=== PATIENT | male | born 1945 | race Caucasian/White ===

== ENCOUNTER 2019-03-02 12:49 | Inpatient (IN) | payer MEDICARE, OTHER ==
[~2019-03-02] VITALS: Ht 185.4 cm; Wt 87.2 kg
[2019-03-02] MEDS: SODIUM CHLORIDE 0.9% 1,000 ML IV SCH ×2 (06:30→18:47)
[~2019-03-02 12:49] MED LIST: ALL100T PO; ASP81EC PO; CITA-77 PO; CYAN500T3 PO; DEX4T PO; GLIP5TAB12 PO; METF500T PO; PANT40TA2 PO
[2019-03-02 14:16] LABS: Basophils # (auto) 0 uL; Basophils % (auto) 0.2 % (0.0-2.0); Eosinophils # (auto) 0 uL; Hematocrit 28.7 % (41.0-53.0); Hemoglobin 9.5 g/dL (13.5-17.5); Lymphocytes # (auto) 2.6 uL; Lymphocytes % (auto) 27.9 % (10.0-50.0); Mean Corpuscular Hgb Conc. 33.1 g/dL (32.0-36.0); Mean Corpuscular Volume 99.8 fL (80.0-100.0); Monocytes # (auto) 0.8 uL; Monocytes % (auto) 8.3 % (0.0-12.0); Neutrophils # (auto) 5.8 uL; Neutrophils % (auto) 63.6 % (37.0-80.0); Platelet Count (auto) 286 10^3/uL (140-450); Red Blood Cells 2.87 10^6/uL (4.5-5.90); White Blood Cell 9.2 10^3/uL (4.4-10.8)
[2019-03-02 14:25] LABS: Alanine Aminotransferase 33 U/L (16-61); Albumin 3.4 g/dL (3.4-5.0); Anion Gap 9 (5-15); Aspartate Aminotransferase 31 U/L (15-37); BUN/Creatinine Ratio 20.3; Blood Urea Nitrogen 24 mg/dL (7-18); Calcium 12.8 mg/dL (8.5-10.1); Carbon Dioxide 27 mmol/L (21-32); Chloride 98 mmol/L (98-107); GFR African American 77 mL/min; GFR Non-African American 64 mL/min; Glucose 132 mg/dL (74-106); Potassium 3.8 mmol/L (3.5-5.1); Sodium 134 mmol/L (136-145)
[2019-03-02 14:29] LABS: Alkaline Phosphatase 177 U/L (45-117); Bilirubin, Total 0.4 mg/dL (0.2-1.0); Total Protein 8.3 g/dL (6.4-8.2)
[2019-03-02] MEDS ORDERED: MORPHINE SULF INJ 2 MG/ML SYRINGE 1ML IV PRN (16:00)
[2019-03-02] MEDS ORDERED: PAMIDRONATE DISODIUM IV ONE (16:00)
[2019-03-02] MEDS ORDERED: MORPHINE SULFATE 4 MG/ML SYR/VIAL IV PRN (16:00)
[2019-03-02] MEDS ORDERED: PROMETHAZINE HCL 25 MG/ML 1ML IV PRN (16:00)
[2019-03-02] MEDS ORDERED: ACETAMINOPHEN 500 MG TAB PO PRN (16:00)
[2019-03-02] MEDS ORDERED: NITROGLYCERIN 0.4 MG SL TAB SL PRN (16:00)
[2019-03-02] MEDS ORDERED: SODIUM CHL 0.9% IV ONE (16:00)
[2019-03-02] MEDS ORDERED: TEMAZEPAM 15 MG CAP PO PRN (16:00)
--- NOTE | 2019-03-02 16:54 | NUR ---
RECEIVED REPORT FROM GUY MARQUEZ.
--- NOTE | 2019-03-02 17:15 | NUR ---
Telemetry admit from ER [place] admitted to Telemetry unit after SBAR received. Patient oriented to BRYAN NI RN, unit, room, bed, and unit policies regarding patient care and visiting hours. Patient now on continuous telemetry monitoring, tele box # 4 and telemetry reading on arrival to unit is SINUS RHYTHM AT 83. Patient weighed by bedscale and encouraged to call if they need something. All questions and concerns addressed, patient verbalized understanding.
[2019-03-02 17:20] VITALS: BP 137/72
[2019-03-02 17:29] VITALS: BP 137/72
[2019-03-02] MEDS ORDERED: AML5T PO (18:18)
[2019-03-02] MEDS ORDERED: SENN-58 PO (18:18)
[2019-03-02] MEDS ORDERED: FERR-7 PO (18:18)
[2019-03-02] MEDS ORDERED: MAGN400T5 PO (18:18)
[2019-03-02] MEDS ORDERED: ASCO500T11 PO (18:18)
[2019-03-02] MEDS: FUROSEMIDE 40 MG/4 ML VIAL IV SCH (18:47)
--- NOTE | 2019-03-02 19:10 | NUR ---
Opening Shift Note Assumed care of patient, awake and alert. No S/S of distress/SOB or pain. Safety measures in place side rails x2 up, bed in lowest position, call light within reach. Instructed on POC and to call for assist PRN, will continue to monitor for changes Q1hr and PRN.
[2019-03-02 22:00] VITALS: BP 103/54
--- NOTE | 2019-03-02 22:45 | NUR ---
Paged hospitalist for sliding scale orders for Diabetic patient. Orders received and inputted.
[2019-03-02] MEDS ORDERED: DEXTROSE (50%) 50ML SYRG IV PRN (23:00)
[2019-03-03] MEDS: ACCU-CHEK COMFORT CURVE STRIP VI SCH ×4 (00:23→17:36)
[2019-03-03 05:00] VITALS: BP 121/69
[2019-03-03] MEDS: InsuLIN REG 1unit/0.01ml Soln (100units/ml) SC SCH ×4 (06:29→17:36)
[2019-03-03] MEDS: SODIUM CHLORIDE 0.9% 1,000 ML IV SCH ×3 (07:59→23:53)
[2019-03-03 08:00] VITALS: BP 119/68
[2019-03-03] MEDS: FUROSEMIDE 40 MG/4 ML VIAL IV SCH (09:32)
[2019-03-03] MEDS: PANTOPRAZOLE 40 MG TAB PO SCH (09:33)
[2019-03-03] MEDS: POTASSIUM CHL 20 Meq TABLET PO SCH (09:33)
[2019-03-03] MEDS: HYDROcodone-ACET 5/325MG TAB PO PRN (11:12)
--- NOTE | 2019-03-03 11:24 | NUR ---
MRSA SWAB SENT TO LAB, PT WAS DISCHARGED FROM [facility] ON THE DAY OF ADMISSION.
[2019-03-03 11:49] LABS: Urine Bacteria NONE SEEN /hpf (None Seen); Urine Blood Negative /uL (Negative); Urine Specific Gravity 1.006 (1.001-1.035); Urine WBC <1 /hpf (0 - 3)
[2019-03-03 12:00] VITALS: BP 143/81
--- NOTE | 2019-03-03 14:24 | NUR ---
Discharge planning per SS consult, patient has orders to dc with [facility] for [facility]. Presented patient with options, he had no preference, signed choice form. Referral faxed to [facility], placed a follow up call, spoke with Johana, and was advised they will accept this patient and start of care will be within 24-48 hours upon discharge.
--- NOTE | 2019-03-03 15:08 | NUR ---
SPOKE TO FABIÁN REGISTERED NURSE MATERNITY, MADE AWARE OF THE CONSULT FOR HOME HEALTH AND PHYSICAL THERAPY, FOR POSSIBLE DISCHARGE TOMORROW.
[2019-03-03 15:31] LABS: Albumin 2.9 g/dL (3.4-5.0); Calcium 11.7 mg/dL (8.5-10.1); Potassium 3.2 mmol/L (3.5-5.1)
[2019-03-03 15:34] LABS: BUN/Creatinine Ratio 18.6; Bilirubin, Total 0.3 mg/dL (0.2-1.0); Total Protein 7.2 g/dL (6.4-8.2)
[2019-03-03 16:55] VITALS: BP 110/62
--- NOTE | 2019-03-03 17:27 | NUR ---
[facility], WAITING FOR CALL BACK. Addendum: 03/03/19 at 1859 by Stacey Lopez RN DR. FERNANDEZ CALLED ORDERED K 40MEQ PO ONE DOSE
[2019-03-03] MEDS ORDERED: POTASSIUM CHL 20 Meq TABLET PO ONE (19:00)
[2019-03-03 22:00] VITALS: BP 137/83
[2019-03-04] MEDS: ACCU-CHEK COMFORT CURVE STRIP VI SCH ×4 (00:15→17:45)
[2019-03-04 05:00] VITALS: BP 135/83
[2019-03-04 06:22] LABS: Albumin 2.6 g/dL (3.4-5.0); Potassium 3.4 mmol/L (3.5-5.1)
[2019-03-04] MEDS: HYDROcodone-ACET 5/325MG TAB PO PRN ×2 (06:22→19:37)
[2019-03-04] MEDS: InsuLIN REG 1unit/0.01ml Soln (100units/ml) SC SCH ×4 (06:22→17:46)
[2019-03-04 06:26] LABS: BUN/Creatinine Ratio 18.9; Bilirubin, Total 0.3 mg/dL (0.2-1.0); Total Protein 6.8 g/dL (6.4-8.2)
--- NOTE | 2019-03-04 08:54 | NUR ---
Hospitalist at bedside MD Bar at bedside, aware of patient's status. New orders received. transplant worker Shonda paged as ordered regarding pending consult, awaiting call back. Cont to monitor
[2019-03-04 09:07] VITALS: BP 132/77
--- NOTE | 2019-03-04 09:23 | NUR ---
Spoke to social media marketer re: HH per Shonda, she set up patient with [facility]. Per Shonda, call and notify [facility] rep Phipps once patient gets discharge tomorrow at [phone].
[2019-03-04] MEDS: POTASSIUM CHL 20 Meq TABLET PO SCH (09:48)
[2019-03-04] MEDS: PANTOPRAZOLE 40 MG TAB PO SCH (09:48)
[2019-03-04] MEDS: FUROSEMIDE 40 MG/4 ML VIAL IV SCH (09:48)
[2019-03-04] MEDS: SODIUM CHLORIDE 0.9% 1,000 ML IV SCH ×3 (09:52→22:21)
--- NOTE | 2019-03-04 12:24 | NUR ---
Patient assisted up to bathroom patient had large bowel movement, ambulated with walker and tolerated well. Patient assisted back to bed after full linen change performed and bed bath. Fall precs in place. Will cont care
[2019-03-04 13:00] VITALS: BP 126/73
[2019-03-04 17:00] VITALS: BP 138/85
--- NOTE | 2019-03-04 20:03 | NUR ---
Patient is awake, alert and oriented x 4, c/o pain on back, hips, and biceps, aggravated by movement, given norco as requested and ordered. will keep monitoring.
[2019-03-04 21:20] VITALS: BP 137/86
[2019-03-05] MEDS: ACCU-CHEK COMFORT CURVE STRIP VI SCH ×3 (00:01→11:57)
[2019-03-05] MEDS: InsuLIN REG 1unit/0.01ml Soln (100units/ml) SC SCH ×3 (00:04→11:58)
[2019-03-05 05:03] VITALS: BP 129/81
[2019-03-05 05:17] LABS: Albumin 2.6 g/dL (3.4-5.0); BUN/Creatinine Ratio 16.3; Calcium 9.5 mg/dL (8.5-10.1); Potassium 3.2 mmol/L (3.5-5.1)
[2019-03-05 05:20] LABS: Bilirubin, Total 0.3 mg/dL (0.2-1.0); Total Protein 6.7 g/dL (6.4-8.2)
[2019-03-05] MEDS: SODIUM CHLORIDE 0.9% 1,000 ML IV SCH ×2 (05:43→11:55)
[2019-03-05] MEDS: HYDROcodone-ACET 5/325MG TAB PO PRN (05:43)
--- NOTE | 2019-03-05 07:52 | NUR ---
Hospitalist at bedside MD Bar at bedside, aware of patient's status. New orders received for dc this afternoon and to continue IVF until dc. Per MD Bar no need for Lasix anymore and to cont current home meds. Patient verbalized understanding and agrees for dc. Will dc as ordered.
[2019-03-05 09:00] VITALS: BP 139/80
[2019-03-05] MEDS: FUROSEMIDE 40 MG/4 ML VIAL IV SCH (09:19)
[2019-03-05] MEDS: POTASSIUM CHL 20 Meq TABLET PO SCH (09:34)
[2019-03-05] MEDS: PANTOPRAZOLE 40 MG TAB PO SCH (09:34)
--- NOTE | 2019-03-05 12:07 | NUR ---
Tele monitor returned to ICU, tele monitor informed.
--- NOTE | 2019-03-05 12:57 | NUR ---
Spoke to [facility] Spoke to [facility] at Phone #[phone] and she spoke to patient's on the phone. [facility] will start services 24-48hrs per Rhonda, pt and spouse verbalized understanding. Will dc as ordered
--- NOTE | 2019-03-05 12:59 | NUR ---
Discharge instructions given as ordered to patient, and with patient's consent, spouse at bedside. Encourage to follow up with PMD as instructed. All questions and concerns addressed. Patient and spouse verbalized understanding. Medication reconciliation form completed and copy given to patient. Home medications held in Pharmacy returned to patient, and needed vaccines given. IV removed with catheter intact, pressure dressing applied. Telemetry unit returned to ICU. Patient taken to vehicle via wheelchair with all personal belongings, accompanied by staff and family member. No distress noted at time of departure.
[2019-03-05 13:00] VITALS: BP 117/80
== END 2019-03-05 13:18 | disposition home health service (06) | DRG 70 ==
LOC: ER 12:52 → TELE 12:53 → TELE-EAST 17:15
PROVIDERS: ADMIT Internal Medicine; ATTEND Family Medicine
DX: G93.41 Metabolic encephalopathy (principal); J18.9 Pneumonia, unspecified organism; N17.0 Acute kidney failure with tubular necrosis; S22.32XA Fracture of one rib, left side, initial encounter for closed fracture; C90.00 Multiple myeloma not having achieved remission; E87.0 Hyperosmolality and hypernatremia; E83.52 Hypercalcemia; D64.9 Anemia, unspecified; E11.9 Type 2 diabetes mellitus without complications; E78.00 Pure hypercholesterolemia, unspecified; E78.5 Hyperlipidemia, unspecified; I10 Essential (primary) hypertension; N40.0 Benign prostatic hyperplasia without lower urinary tract symptoms; Z96.641 Presence of right artificial hip joint; M54.5 Low back pain; M85.80 Other specified disorders of bone density and structure, unspecified site; D63.8 Anemia in other chronic diseases classified elsewhere; K59.00 Constipation, unspecified; Z66 Do not resuscitate; E11.65 Type 2 diabetes mellitus with hyperglycemia; T38.0X5A Adverse effect of glucocorticoids and synthetic analogues, initial encounter; E79.0 Hyperuricemia without signs of inflammatory arthritis and tophaceous disease; X58.XXXA Exposure to other specified factors, initial encounter; Y93.89 Activity, other specified; Y92.89 Other specified places as the place of occurrence of the external cause; Y99.8 Other external cause status
CPT/HCPCS: 36415; 71045; 74176; 80053; 81001; 82962; 84484; 85025; 87081; 96365; 96375; G0378; J1815

== ENCOUNTER 2019-03-21 16:38 | Emergency (ER) | payer MEDICARE, OTHER ==
[~2019-03-21] VITALS: Ht 185.4 cm; Wt 88.5 kg
[~2019-03-21 16:38] MED LIST changes: +AML5T PO; +ASCO500T11 PO; +FERR-7 PO; +MAGN400T5 PO; +SENN-58 PO
[2019-03-21] MEDS ORDERED: MORPHINE SULFATE 4 MG/ML SYR/VIAL IV ONE (18:30)
[2019-03-21] MEDS ORDERED: ONDANSETRON HCL 4 MG/2 ML VIAL IV ONE (18:30)
[2019-03-21 19:05] LABS: Basophils # (auto) 0 uL; Basophils % (auto) 0.1 % (0.0-2.0); Eosinophils # (auto) 0.1 uL; Eosinophils % (auto) 0.9 % (0.0-7.0); Hematocrit 27.3 % (41.0-53.0); Hemoglobin 9.1 g/dL (13.5-17.5); Lymphocytes # (auto) 2.2 uL; Lymphocytes % (auto) 27.6 % (10.0-50.0); Mean Corpuscular Hemoglobin 33.1 pg (28.0-32.0); Mean Corpuscular Hgb Conc. 33.2 g/dL (32.0-36.0); Mean Corpuscular Volume 99.6 fL (80.0-100.0); Monocytes # (auto) 0.4 uL; Monocytes % (auto) 5.3 % (0.0-12.0); Neutrophils # (auto) 5.2 uL; Neutrophils % (auto) 66.1 % (37.0-80.0); Nucleated Red Blood Cells % 0.1 %; Platelet Count (auto) 241 10^3/uL (140-450); Red Blood Cells 2.74 10^6/uL (4.5-5.90); Red Cell Distribution Width 15.7 % (11.8-14.3); White Blood Cell 7.9 10^3/uL (4.4-10.8)
[2019-03-21 19:12] LABS: Anion Gap 8 (5-15); BUN/Creatinine Ratio 13.3; Blood Urea Nitrogen 10 mg/dL (7-18); Carbon Dioxide 27 mmol/L (21-32); Chloride 101 mmol/L (98-107); GFR African American 131 mL/min; Glucose 67 mg/dL (74-106); Potassium 3.4 mmol/L (3.5-5.1); Sodium 136 mmol/L (136-145)
[2019-03-21 19:13] LABS: Alanine Aminotransferase 23 U/L (16-61); Aspartate Aminotransferase 22 U/L (15-37); Calcium 9.7 mg/dL (8.5-10.1); GFR Non-African American 108 mL/min
[2019-03-21 19:16] LABS: INR 0.97 (0.9-1.15); Partial Thromboplastin Time 27.1 sec (23.64-32.05)
[2019-03-21 19:17] LABS: Alkaline Phosphatase 136 U/L (45-117); Bilirubin, Total 0.4 mg/dL (0.2-1.0); Total Protein 7.3 g/dL (6.4-8.2)
[2019-03-21 21:05] VITALS: BP 133/82
== END 2019-03-21 21:07 | disposition home or self-care (01) ==
LOC: ER 16:38
DX: R07.89 Other chest pain (principal); C90.00 Multiple myeloma not having achieved remission; E11.9 Type 2 diabetes mellitus without complications; I10 Essential (primary) hypertension; Z79.899 Other long term (current) drug therapy
CPT/HCPCS: 36415; 71045; 80053; 83880; 84484; 85025; 85610; 85730; 96374; 96375; 99284; J2270; J2405

== ENCOUNTER 2019-05-27 11:48 | Emergency (ER) | payer MEDICARE, OTHER ==
[~2019-05-27] VITALS: Ht 180.3 cm; Wt 77.1 kg
[~2019-05-27 11:48] MED LIST changes: +MAGN400T40 PO; -MAGN400T5 PO
[2019-05-27] MEDS ORDERED: SODIUM CHLORIDE 0.9% 1,000 ML IVB ONE (12:32)
[2019-05-27 14:33] LABS: Basophils # (auto) 0 uL; Eosinophils # (auto) 0 uL; Red Cell Distribution Width 17.8 % (11.8-14.3)
[2019-05-27 14:35] LABS: Basophils % (auto) 0.5 % (0.0-2.0); Eosinophils % (auto) 1.5 % (0.0-7.0); Hematocrit 21.7 % (41.0-53.0); Hemoglobin 7.5 g/dL (13.5-17.5); Lymphocytes # (auto) 1.3 uL; Mean Corpuscular Hemoglobin 32.8 pg (28.0-32.0); Mean Corpuscular Hgb Conc. 34.7 g/dL (32.0-36.0); Mean Corpuscular Volume 94.5 fL (80.0-100.0); Monocytes # (auto) 0.4 uL; Monocytes % (auto) 14.4 % (0.0-12.0); Neutrophils # (auto) 0.9 uL; Neutrophils % (auto) 33.6 % (37.0-80.0); Platelet Count (auto) 136 10^3/uL (140-450); White Blood Cell 2.6 10^3/uL (4.4-10.8)
[2019-05-27] MEDS ORDERED: ONDANSETRON HCL 4 MG/2 ML VIAL IV ONE ×2 (14:45→21:45)
[2019-05-27] MEDS ORDERED: MORPHINE SULF INJ 2 MG/ML SYRINGE 1ML IV ONE ×2 (14:45→21:45)
[2019-05-27 14:50] LABS: Albumin 2.4 g/dL (3.4-5.0); Calcium 7.9 mg/dL (8.5-10.1); Magnesium 1.4 mg/dL (1.6-2.6); Potassium 3.1 mmol/L (3.5-5.1)
[2019-05-27 14:53] LABS: BUN/Creatinine Ratio 15.9; Bilirubin, Total 0.5 mg/dL (0.2-1.0); Total Protein 5.9 g/dL (6.4-8.2)
[2019-05-27] MEDS ORDERED: POTASSIUM CHL 20 Meq TABLET PO ONE (15:30)
[2019-05-27] MEDS ORDERED: MORPHINE SULF INJ 2 MG/ML SYRINGE 1ML ONE (21:29)
[2019-05-27] MEDS ORDERED: ONDANSETRON HCL 4 MG/2 ML VIAL ONE (21:29)
[2019-05-27 23:00] VITALS: BP 119/75
== END 2019-05-27 23:21 | disposition home or self-care (01) ==
LOC: ER 11:48 → EDBD 11:48 → ER 23:21
DX: S72.8X2A Other fracture of left femur, initial encounter for closed fracture (principal); D72.819 Decreased white blood cell count, unspecified; D69.6 Thrombocytopenia, unspecified; D64.9 Anemia, unspecified; F32.9 Major depressive disorder, single episode, unspecified; I10 Essential (primary) hypertension; Z79.899 Other long term (current) drug therapy; Z85.79 Personal history of other malignant neoplasms of lymphoid, hematopoietic and related tissues; W00.0XXA Fall on same level due to ice and snow, initial encounter; Y93.01 Activity, walking, marching and hiking; Y92.89 Other specified places as the place of occurrence of the external cause; Y99.8 Other external cause status
CPT/HCPCS: 36415; 71045; 72192; 73552; 80053; 82962; 83735; 85025; 86850; 86900; 86901; 93005; 96374; 96375; 96376; 99291; J2270; J2405; J7030